=== PATIENT | male | born 1980 | race African-American/Black ===

== ENCOUNTER 2016-08-18 10:08 | Emergency (ER) | payer BC ==
[~2016-08-18] VITALS: Ht 167.6 cm; Wt 56.7 kg
[~2016-08-18 10:08] MED LIST: NOHOMEMEDICATIONS; TRAMADOL 50 MG50 MG PO; ULTRAM 50MG TAB50 MG PO
[2016-08-18 10:10] VITALS: BP 114/65
[2016-08-18] MEDS ORDERED: MOBIC15 MG PO (11:13)
== END 2016-08-18 11:25 | disposition home or self-care (01) ==
LOC: ER 10:08
DX: S61.411A Laceration without foreign body of right hand, initial encounter (principal); Z98.890 Other specified postprocedural states; F10.99 Alcohol use, unspecified with unspecified alcohol-induced disorder; W25.XXXA Contact with sharp glass, initial encounter; Y93.89 Activity, other specified; Y92.89 Other specified places as the place of occurrence of the external cause; Y99.8 Other external cause status

== ENCOUNTER 2018-07-27 17:41 | Emergency (ER) | payer BC ==
[~2018-07-27] VITALS: Ht 167.6 cm; Wt 54.4 kg
[~2018-07-27 17:41] MED LIST changes: +MOBIC15 MG PO
[2018-07-27] MEDS ORDERED: NORCO 5-325 TA1 EACH PO (18:56)
[2018-07-27 19:01] VITALS: BP 118/70
== END 2018-07-27 19:02 | disposition home or self-care (01) ==
LOC: ER 17:41
DX: S22.32XA Fracture of one rib, left side, initial encounter for closed fracture (principal); W19.XXXA Unspecified fall, initial encounter; Y93.89 Activity, other specified; Y92.89 Other specified places as the place of occurrence of the external cause; Y99.8 Other external cause status